=== PATIENT | male | born 1975 | race Caucasian/White ===

== ENCOUNTER 2017-10-25 11:06 | Emergency (ER) | payer OTHER ==
[~2017-10-25] VITALS: Ht 180.3 cm; Wt 79.4 kg
[~2017-10-25 11:06] MED LIST: CLIN300 PO; Norco 5-325 Ta1 EACH PO; TRIPLE ANTIBIO1 EACH TOP
[2018-06-25] MEDS ORDERED: IBUP600 PO (19:42)
[2018-06-25] MEDS ORDERED: Percocet 5-3251 EACH PO (19:42)
== END 2017-10-25 12:06 | disposition home or self-care (01) ==
LOC: ER 11:06
DX: S61.511D Laceration without foreign body of right wrist, subsequent encounter (principal); F17.200 Nicotine dependence, unspecified, uncomplicated; W22.8XXD Striking against or struck by other objects, subsequent encounter; Z88.0 Allergy status to penicillin
CPT/HCPCS: 99281

== ENCOUNTER 2018-07-07 12:22 | Day surgery (SDC) | payer OTHER ==
[~2018-07-07] VITALS: Ht 177.8 cm; Wt 75.8 kg
[~2018-07-07 12:22] MED LIST changes: +IBUP600 PO; +Percocet 5-3251 EACH PO
[2018-07-07] MEDS ORDERED: Ventolin5 MG/1 ML (12:51)
== END 2018-07-07 16:19 | disposition home or self-care (01) ==
LOC: ORSCSDS 12:22
PROVIDERS: Orthopaedic Surgery
PROC: 0PSB04Z Reposition Left Clavicle with Internal Fixation Device, Open Approach (ICD-10-PCS; principal; 2018-07-07 13:45)
DX: S42.002A Fracture of unspecified part of left clavicle, initial encounter for closed fracture (principal); J45.909 Unspecified asthma, uncomplicated; F17.210 Nicotine dependence, cigarettes, uncomplicated
CPT/HCPCS: C1713; J1100; J1885; J2250; J2405; J2795; J3010; J7120

== ENCOUNTER 2019-05-13 20:20 | Emergency (ER) | payer OTHER ==
[~2019-05-13] VITALS: Ht 182.9 cm; Wt 78.5 kg
[~2019-05-13 20:20] MED LIST changes: +Ventolin5 MG/1 ML
[2019-05-13] MEDS ORDERED: NAPR550 PO (22:02)
[2019-05-13] MEDS ORDERED: Vibramycin100 MG PO (22:02)
== END 2019-05-13 22:32 | disposition home or self-care (01) ==
LOC: ER 20:20
DX: S02.40EA Zygomatic fracture, right side, initial encounter for closed fracture (principal); S02.81XA Fracture of other specified skull and facial bones, right side, initial encounter for closed fracture; S02.40CA Maxillary fracture, right side, initial encounter for closed fracture; S02.40DA Maxillary fracture, left side, initial encounter for closed fracture; Z23 Encounter for immunization; F17.200 Nicotine dependence, unspecified, uncomplicated; Z88.0 Allergy status to penicillin; Y08.89XA Assault by other specified means, initial encounter; Y92.830 Public park as the place of occurrence of the external cause
CPT/HCPCS: 70450; 70486; 90471; 90714; 96372; 99284-25; J1885

== ENCOUNTER 2019-06-30 08:53 | Emergency (ER) | payer OTHER ==
[~2019-06-30] VITALS: Ht 177.8 cm; Wt 77.1 kg
[~2019-06-30 08:53] MED LIST changes: +NAPR550 PO; +Vibramycin100 MG PO
== END 2019-06-30 10:12 | disposition home or self-care (01) ==
LOC: ER 08:53
DX: S54.91XA Injury of unspecified nerve at forearm level, right arm, initial encounter (principal); J45.901 Unspecified asthma with (acute) exacerbation; F17.200 Nicotine dependence, unspecified, uncomplicated; Z88.0 Allergy status to penicillin; X58.XXXA Exposure to other specified factors, initial encounter
CPT/HCPCS: 29125; 99283-25; L3917

== ENCOUNTER 2019-10-11 12:30 | Inpatient (IN) | payer OTHER ==
[~2019-10-11] VITALS: Ht 177.8 cm; Wt 83.9 kg
[2019-10-11 13:15] LABS: Influenza A Negative (NEGATIVE); Influenza B Negative (NEGATIVE)
[2019-10-11 13:33] LABS: BASOPHILS ABSOLUTE AUTO 0.06 K/mm3 (0.00-0.23); BASOPHILS PERCENT AUTO 0 % (0-2); EOSINOPHILS PERCENT AUTO 0 % (0-6); IMMATURE GRAN ABSOLUTE AUTO 0.08 K/mm3 (0.00-0.10); IMMATURE GRAN PERCENT AUTO 0 % (0-1); LYMPHOCYTES ABSOLUTE AUTO 1.73 K/mm3 (0.84-5.20); LYMPHOCYTES PERCENT AUTO 8 % (21-46); MONOCYTES ABSOLUTE AUTO 1.12 K/mm3 (0.16-1.47); MONOCYTES PERCENT AUTO 5 % (4-13); Mean Corpuscular HGB 31.9 pg (26.0-34.0); Mean Corpuscular HGB Conc 33.3 g/dL (31.5-36.5); Mean Corpuscular Volume 96 fL (80-100); Mean Platelet Volume 8.9 fL (9.1-12.4); NEUTROPHILS ABSOLUTE AUTO 18.95 K/mm3 (1.96-9.15); NEUTROPHILS PERCENT AUTO 86 % (41-73); Platelet Count 353 K/mm3 (150-400); RDW Coefficient Variation 11.6 % (11.7-14.2); RDW Standard Deviation 40.9 fL (35.1-46.3); White Blood Cell Count 21.94 K/mm3 (4.00-11.30)
[2019-10-11 13:54] LABS: Alanine Aminotransfer (ALT/SGP 15 U/L (12-78); Albumin, Blood 3.5 g/dL (3.4-5.0); Albumin/Globulin Ratio 0.7 (0.8-1.8); Alk Phos 100 U/L (50-136); Anion Gap 9 mmol/L (6-16); Aspartate Aminotrans (AST/SGOT 24 U/L (12-37); Bilirubin, Total 1.2 mg/dL (0.1-1.0); Blood Urea Nitrogen 11 mg/dL (8-24); CO2, Blood 26 mmol/L (21-32); Chloride, Blood 98 mmol/L (98-108); Creatinine, Blood 0.85 mg/dL (0.60-1.20); Globulin, Blood 4.9 g/dL (2.2-4.0); Glomerular Filtration Rate >60 (60-); Glucose, Blood 112 mg/dL (70-99); Potassium, Blood 3.5 mmol/L (3.5-5.5); Sodium, Blood 133 mmol/L (136-145); Total Protein, Blood 8.4 g/dL (6.4-8.2)
[2019-10-11] MEDS ORDERED: FLUT1DIS2 (16:21)
[2019-10-11] MEDS ORDERED: ALBU90OI INH (16:22)
--- NOTE | 2019-10-11 17:01 | NUR ---
PT ARRIVED TO UNIT FROM ED. TRANSFERRED INDEPENDENTLY TO BED FROM . PROVIDED SPUTUM AND URINE SPECIMENS. TELE NOW ON. CALL LIGHT IN REACH. MEDICATED PER ORDERS W/TYLENOL FOR PAIN.
[2019-10-11] MEDS ORDERED: ANORO ELLIPTA1 EACH INH (17:25)
[2019-10-11 17:38] LABS: U Amphetamine Screen Not Detected; U Barbituate Screen Not Detected; U Benzodiazapine Screen Not Detected; U Buprenorphine Screen Not Detected; U Cannabinoids Screen Not Detected; U Cocaine Screen Not Detected; U Methadone Screen Not Detected; U Methamphetamine Screen Not Detected; U Opiates Screen DETECTED; U Oxycodone Screen Not Detected; U Phencyclidine Screen Not Detected; U Propoxyphene Screen Not Detected
[2019-10-12 05:39] LABS: BASOPHILS ABSOLUTE AUTO 0.01 K/mm3 (0.00-0.23); BASOPHILS PERCENT AUTO 0 % (0-2); EOSINOPHILS PERCENT AUTO 0 % (0-6); Hemoglobin 12.5 g/dL (13.5-17.5); IMMATURE GRAN ABSOLUTE AUTO 0.05 K/mm3 (0.00-0.10); IMMATURE GRAN PERCENT AUTO 0 % (0-1); LYMPHOCYTES ABSOLUTE AUTO 0.72 K/mm3 (0.84-5.20); LYMPHOCYTES PERCENT AUTO 6 % (21-46); MONOCYTES ABSOLUTE AUTO 0.55 K/mm3 (0.16-1.47); MONOCYTES PERCENT AUTO 4 % (4-13); Mean Corpuscular HGB 31.6 pg (26.0-34.0); Mean Corpuscular HGB Conc 32.9 g/dL (31.5-36.5); Mean Corpuscular Volume 96 fL (80-100); Mean Platelet Volume 9.9 fL (9.1-12.4); NEUTROPHILS ABSOLUTE AUTO 11.18 K/mm3 (1.96-9.15); NEUTROPHILS PERCENT AUTO 89 % (41-73); Platelet Count 294 K/mm3 (150-400); RDW Coefficient Variation 11.8 % (11.7-14.2); RDW Standard Deviation 41.4 fL (35.1-46.3); Red Blood Cell Count 3.96 M/mm3 (4.30-5.90); White Blood Cell Count 12.51 K/mm3 (4.00-11.30)
[2019-10-12 06:12] LABS: Alanine Aminotransfer (ALT/SGP 14 U/L (12-78); Albumin, Blood 2.6 g/dL (3.4-5.0); Albumin/Globulin Ratio 0.6 (0.8-1.8); Alk Phos 83 U/L (50-136); Anion Gap 8 mmol/L (6-16); Aspartate Aminotrans (AST/SGOT 12 U/L (12-37); Bilirubin, Total 0.6 mg/dL (0.1-1.0); Blood Urea Nitrogen 13 mg/dL (8-24); CO2, Blood 22 mmol/L (21-32); Calcium, Blood 8.3 mg/dL (8.5-10.1); Chloride, Blood 110 mmol/L (98-108); Creatinine, Blood 0.81 mg/dL (0.60-1.20); Globulin, Blood 4.1 g/dL (2.2-4.0); Glomerular Filtration Rate >60 (60-); Glucose, Blood 137 mg/dL (70-99); Potassium, Blood 4.2 mmol/L (3.5-5.5); Sodium, Blood 140 mmol/L (136-145); Total Protein, Blood 6.7 g/dL (6.4-8.2)
--- NOTE | 2019-10-12 07:32 | NUR ---
SHIFT SUMMARY PATIENT ALERT AND ORIENTED. HAD A HARD TIME GETTING TO SLEEP OVERNIGHT, WAS ABLE TO FINALLY SLEEP AROUND 0300. IV PATENT AND INFUSING WITH NORMAL SALINE AT 150 ML/HR. BED IN LOWEST POSITION WITH WHEELS LOCKED. REPORT GIVEN TO ONCOMING RN.
--- NOTE | 2019-10-12 08:15 | NUR ---
Umeclidinium/Vilanterol Pt takes this medication daily. Unavailable from Pharmacy so medication was substituted for Glycopyrrolate. Dr. Liliya luna and jerome
--- NOTE | 2019-10-12 16:31 | NUR ---
A/Ox4. Pleasant and cooperative with care. Pt had good PO intake. Productive cough has been minimal this shift. Pt c/o slight dizziness when up to use bathroom, encouraged to call for assistance if needed. Also c/o 8/10 L upper chest pain when breathing, medicated x 2 per EMAR with good results down to 01/27. Denies SOB, dyspnea. Unlabored breathing. Afebrile. No other acute changes this shift.
[2019-10-13 05:00] LABS: BASOPHILS ABSOLUTE AUTO 0.02 K/mm3 (0.00-0.23); BASOPHILS PERCENT AUTO 0 % (0-2); EOSINOPHILS PERCENT AUTO 0 % (0-6); Hematocrit 35.3 % (37.0-53.0); Hemoglobin 11.3 g/dL (13.5-17.5); IMMATURE GRAN ABSOLUTE AUTO 0.17 K/mm3 (0.00-0.10); IMMATURE GRAN PERCENT AUTO 1 % (0-1); LYMPHOCYTES ABSOLUTE AUTO 1.84 K/mm3 (0.84-5.20); LYMPHOCYTES PERCENT AUTO 12 % (21-46); MONOCYTES ABSOLUTE AUTO 1.04 K/mm3 (0.16-1.47); MONOCYTES PERCENT AUTO 7 % (4-13); Mean Corpuscular Volume 97 fL (80-100); Mean Platelet Volume 9.8 fL (9.1-12.4); NEUTROPHILS ABSOLUTE AUTO 12.48 K/mm3 (1.96-9.15); NEUTROPHILS PERCENT AUTO 80 % (41-73); Platelet Count 332 K/mm3 (150-400); RDW Coefficient Variation 12.1 % (11.7-14.2); RDW Standard Deviation 43.6 fL (35.1-46.3); Red Blood Cell Count 3.64 M/mm3 (4.30-5.90); White Blood Cell Count 15.55 K/mm3 (4.00-11.30)
--- NOTE | 2019-10-13 06:10 | NUR ---
SHIFT SUMMARY PT IS A 44 Y/O MALE, ADMITTED FOR SEVERE SEPSIS AND PNA. HE IS A&O X 4 AND INDEPENDENT IN THE ROOM. PT WAS MEDICATED X 1 WITH PRN TYLENOL AND TORADOL FOR L SIDE/CHEST PAIN. NO COMPLAINTS OF ACUTE SOB OR NAUSEA. VITAL SIGNS STABLE. TELE MONITOR SHOWED NSR IN THE 60S. PT RECEIVING NS @ 150 ML/HR THROUGH THE NIGHT. NO OTHER ACUTE CHANGES IN PT CONDITION NOTED DURING THE NIGHT. WILL CONTINUE TO MONITOR AND TREAT PER EMAR UNTIL HAND OFF TO DAY SHIFT RN.
--- NOTE | 2019-10-13 17:34 | NUR ---
Shift Summary Encouraged patient to spend some time out in the hallway, pt declined. Up in room frequently to the bathroom. Complain of 8-9/10 L upper lobe pain, medicated x 3 per EMAR. Pt continues to have productive cough with light brownish/carlson thick sputum, medicated for cough x 2. Denies nausea, vomiting, diarrhea. No other complaints or concerns at this time. Will continue to monitor.
[2019-10-14 04:46] LABS: BASOPHILS ABSOLUTE AUTO 0.06 K/mm3 (0.00-0.23); BASOPHILS PERCENT AUTO 0 % (0-2); EOSINOPHILS ABSOLUTE AUTO 0.01 K/mm3 (0.00-0.68); EOSINOPHILS PERCENT AUTO 0 % (0-6); Hematocrit 34.9 % (37.0-53.0); Hemoglobin 11.4 g/dL (13.5-17.5); IMMATURE GRAN ABSOLUTE AUTO 0.64 K/mm3 (0.00-0.10); IMMATURE GRAN PERCENT AUTO 4 % (0-1); LYMPHOCYTES ABSOLUTE AUTO 2.39 K/mm3 (0.84-5.20); LYMPHOCYTES PERCENT AUTO 15 % (21-46); MONOCYTES ABSOLUTE AUTO 1.66 K/mm3 (0.16-1.47); MONOCYTES PERCENT AUTO 10 % (4-13); Mean Corpuscular HGB 31.4 pg (26.0-34.0); Mean Corpuscular HGB Conc 32.7 g/dL (31.5-36.5); Mean Corpuscular Volume 96 fL (80-100); Mean Platelet Volume 9.4 fL (9.1-12.4); NEUTROPHILS ABSOLUTE AUTO 11.21 K/mm3 (1.96-9.15); NEUTROPHILS PERCENT AUTO 70 % (41-73); Platelet Count 456 K/mm3 (150-400); RDW Coefficient Variation 12.2 % (11.7-14.2); RDW Standard Deviation 43.6 fL (35.1-46.3); Red Blood Cell Count 3.63 M/mm3 (4.30-5.90); White Blood Cell Count 15.97 K/mm3 (4.00-11.30)
[2019-10-14 05:07] LABS: Albumin, Blood 2.5 g/dL (3.4-5.0); Anion Gap 10 mmol/L (6-16); Blood Urea Nitrogen 8 mg/dL (8-24); Bun/Creatinine Ratio 10.6 (12.0-20.0); CO2, Blood 21 mmol/L (21-32); Calcium, Blood 8.1 mg/dL (8.5-10.1); Chloride, Blood 112 mmol/L (98-108); Creatinine, Blood 0.76 mg/dL (0.60-1.20); Glomerular Filtration Rate >60 (60-); Glucose, Blood 92 mg/dL (70-99); Phosphorus, Blood 2.2 mg/dL (2.5-4.9); Potassium, Blood 3.5 mmol/L (3.5-5.5); Sodium, Blood 143 mmol/L (136-145)
--- NOTE | 2019-10-14 06:37 | NUR ---
PT C/O THAT HE HAD BEEN UNABLE TO REST OR SLEEP SINCE HIS ARRIVAL. GAVE PAIN MED AND COUGH SYRUP AT BED TIME AND PATIENT SEEMED TO SLEEP FAIRLY WELL FOR A WHILE. THEN HE WAS UP TO THE BATHROOM AND REPORTED TO THE TRUST AND ESTATES [place] THAT HE HAD COUGHED UP BLOOD AND HAD FLUSHED IT. EDUCATED THE PATIENT THAT IF IT HAPPENED AGAIN HE SHOULD CALL A MEMEBER OF STAFF SO WE CAN SEE IT AND REPORT IT. LATER IN THE SHIFT HE DID COUGH UP ABOUT 10 ML BROWN/MASTERS WATERY FLUID WITH WHAT LOOKED LIKE BLODD CLOTS IN IT. I REPORTED THIS TO DR APONTE. PT RECIEVED PAIN MEDS X2 DOSES THIS SHIFT. HE REMAINS FREE OF INJURY THIS SHIFT
--- NOTE | 2019-10-14 17:59 | NUR ---
SHIFT SUMMARY- PT A/O COOPERATIVE AND PLESANT. INCREASE IN PAIN MEDICATION PER . PT TO RADIOLOGY FOR CT SCAN. LUNG SOUNDS ARE CORSE, COUGHING INTERMITENTLY. PT INDEPENDANT IN THE ROOM PT RECIEVING IV ANTIBIOTICS. ON DROPLET PRECAUTIONS. PT EATING AND DRINKING WELL
[2019-10-15 04:43] LABS: Hematocrit 33.7 % (37.0-53.0); Mean Corpuscular HGB 31.3 pg (26.0-34.0); Mean Corpuscular HGB Conc 32.6 g/dL (31.5-36.5); Mean Corpuscular Volume 96 fL (80-100); Mean Platelet Volume 9.1 fL (9.1-12.4); NRBC ABSOLUTE 0.02 K/mm3 (0.00-0.02); NRBC Auto 0.1 /100 WBC (0.0-0.2); Platelet Count 482 K/mm3 (150-400); RDW Coefficient Variation 12.3 % (11.7-14.2); RDW Standard Deviation 43.3 fL (35.1-46.3); Red Blood Cell Count 3.51 M/mm3 (4.30-5.90); White Blood Cell Count 17.68 K/mm3 (4.00-11.30)
[2019-10-15 04:59] LABS: Albumin, Blood 2.2 g/dL (3.4-5.0); Anion Gap 6 mmol/L (6-16); Blood Urea Nitrogen 8 mg/dL (8-24); Bun/Creatinine Ratio 10.5 (12.0-20.0); CO2, Blood 25 mmol/L (21-32); Calcium, Blood 7.9 mg/dL (8.5-10.1); Chloride, Blood 110 mmol/L (98-108); Creatinine, Blood 0.77 mg/dL (0.60-1.20); Glomerular Filtration Rate >60 (60-); Glucose, Blood 99 mg/dL (70-99); Phosphorus, Blood 2.9 mg/dL (2.5-4.9); Potassium, Blood 3.5 mmol/L (3.5-5.5); Sodium, Blood 141 mmol/L (136-145)
[2019-10-15 05:38] LABS: BAND PERCENT MAN 1 % (0-8); BASOPHILS PERCENT MAN 0 % (0-2); EOSINOPHILS PERCENT MAN 0 % (0-6); LYMPHOCYTES ABSOLUTE MAN 2.47 K/mm3 (0.84-5.20); LYMPHOCYTES PERCENT MAN 14 % (21-46); METAMYELOCYTE ABSOLUTE MAN 0.35 K/mm3 (0.00-0.00); METAMYELOCYTE PERCENT MAN 2 % (0-0); MONOCYTES ABSOLUTE MAN 2.12 K/mm3 (0.16-1.47); MONOCYTES PERCENT MAN 12 % (4-13); MYELOCYTE ABSOLUTE MAN 0.35 K/mm3 (0.00-0.00); MYELOCYTE PERCENT MAN 2 % (0-0); NEUTROPHILS ABSOLUTE MAN 12.37 K/mm3 (1.96-9.15); SEG NEUTROPHILS PERCENT MAN 69 % (41-73); TOTAL CELLS COUNTED 100
--- NOTE | 2019-10-15 06:32 | NUR ---
SHIFT SUMMARY PT IS A 44 Y/O MALE, ADMITTED FOR PNA. HE IS A&O X 4, AND INDEPENDENT IN THE ROOM. PT WAS MEDICATED FOR PAIN X1 WITH IV TORADOL, AND FOR COUGH X 2 WITH PO COUGH SYRUP. HE RECEIVED CONTINUOUS NS @ 150 ML/HR. VITAL SIGNS STABLE. TELE SHOWED NSR IN THE 70S PER SENIOR CHEMICAL PROCESS ENGINEER. NO ACUTE CHANGES IN PT CONDITION NOTED DURING THE NIGHT. WILL CONTINUE TO MONITOR AND TREAT PER EMAR UNTIL HAND OFF TO DAY SHIFT RN.
[2019-10-15 15:29] LABS: Vancomycin, Trough 13.4 ug/mL (5.0-10.0)
--- NOTE | 2019-10-15 17:39 | NUR ---
SHIFT SUMMARY PT INDEPENDENT IN ROOM. REPORTS PAIN TO L CHEST WALL AND THIS MORNING THE BASE OF HIS NECK. K PAD PLACED IN ROOM TO OFFER COMFORT TO SITES WELL TORADOL GIVEN. REPORTS COUGH IS IMPROVING FROM YESTERDAY. WHAT HE IS SPITTING IN SPECIMAN CONTAINER HAS NO BLOOD NOTED. SHOWER TAKEN TODAY. PT FOUND RETURNING TO ROOM AFTER GOING OUT TO SMOKE. EXPLAINED DANGER OF WEARING NICOTINE PATCH AND SMOKING.
--- NOTE | 2019-10-16 04:09 | NUR ---
SHIFT SUMMARY PATIENT ALERT AND ORIENTED. PATIENT HAT NO COMPLAINT OF PAIN OVERNIGHT AND WAS ABLE TO GET A GIID NIGHTS SLEEP. IV PATENT AND FLUSHED. BED IN LOWEST POSITION WITH WHEELS LOCKED. CALL LIGHT AND BELONGINGS WITHIN REACH. REPORT GIVEN TO ONCOMING ROSENDA.
[2019-10-16 05:26] LABS: Hematocrit 34.3 % (37.0-53.0); Mean Corpuscular HGB Conc 32.1 g/dL (31.5-36.5); Mean Corpuscular Volume 97 fL (80-100); Mean Platelet Volume 9.3 fL (9.1-12.4); NRBC ABSOLUTE 0.02 K/mm3 (0.00-0.02); NRBC Auto 0.1 /100 WBC (0.0-0.2); Platelet Count 583 K/mm3 (150-400); RDW Coefficient Variation 12.3 % (11.7-14.2); RDW Standard Deviation 43.3 fL (35.1-46.3); Red Blood Cell Count 3.55 M/mm3 (4.30-5.90)
[2019-10-16 05:45] LABS: Albumin, Blood 2.2 g/dL (3.4-5.0); Anion Gap 7 mmol/L (6-16); BASOPHILS PERCENT MAN 0 % (0-2); Blood Urea Nitrogen 10 mg/dL (8-24); Bun/Creatinine Ratio 12.5 (12.0-20.0); CO2, Blood 27 mmol/L (21-32); Calcium, Blood 8.3 mg/dL (8.5-10.1); Chloride, Blood 108 mmol/L (98-108); EOSINOPHILS ABSOLUTE MAN 0.18 K/mm3 (0.00-0.68); EOSINOPHILS PERCENT MAN 1 % (0-6); Glomerular Filtration Rate >60 (60-); Glucose, Blood 94 mg/dL (70-99); LYMPHOCYTES ABSOLUTE MAN 2.92 K/mm3 (0.84-5.20); LYMPHOCYTES PERCENT MAN 16 % (21-46); MONOCYTES ABSOLUTE MAN 2.56 K/mm3 (0.16-1.47); MONOCYTES PERCENT MAN 14 % (4-13); MYELOCYTE ABSOLUTE MAN 0.36 K/mm3 (0.00-0.00); MYELOCYTE PERCENT MAN 2 % (0-0); NEUTROPHILS ABSOLUTE MAN 12.26 K/mm3 (1.96-9.15); Phosphorus, Blood 3.1 mg/dL (2.5-4.9); Potassium, Blood 3.6 mmol/L (3.5-5.5); SEG NEUTROPHILS PERCENT MAN 67 % (41-73); Sodium, Blood 142 mmol/L (136-145); TOTAL CELLS COUNTED 100
[2019-10-16 15:26] LABS: Vancomycin, Trough 17.5 ug/mL (5.0-10.0)
--- NOTE | 2019-10-16 17:32 | NUR ---
1700 PT NOT IT ROOM, ATTEMPTING TO GIVE DOSE OF VANCO.
--- NOTE | 2019-10-17 04:41 | NUR ---
SHIFT SUMMARY PATIENT ALERT AND ORIENTED. REQUIRED PRN TORADOL AND COUGH MEDICINE ONCE OVERNIGHT DUE TO CHEST PAIN FROM COUGHING. IV PATENT AND FLUSHED. PATIENT ABLE TO SLEEP WELL OVERNIGHT. BED IN LOWEST POSITION WITH WHEELS LOCKED. CALL LIGHT AND BELONGINGS WITHIN REACH. REPORT GIVEN TO ONCOMING RN.
[2019-10-17 05:22] LABS: Hematocrit 33.1 % (37.0-53.0); Hemoglobin 10.7 g/dL (13.5-17.5); Mean Corpuscular HGB 30.9 pg (26.0-34.0); Mean Corpuscular HGB Conc 32.3 g/dL (31.5-36.5); Mean Corpuscular Volume 96 fL (80-100); Mean Platelet Volume 8.9 fL (9.1-12.4); Platelet Count 652 K/mm3 (150-400); RDW Coefficient Variation 12.2 % (11.7-14.2); RDW Standard Deviation 42.7 fL (35.1-46.3); Red Blood Cell Count 3.46 M/mm3 (4.30-5.90); White Blood Cell Count 17.62 K/mm3 (4.00-11.30)
[2019-10-17 05:43] LABS: BASOPHILS PERCENT MAN 0 % (0-2); EOSINOPHILS ABSOLUTE MAN 0.35 K/mm3 (0.00-0.68); EOSINOPHILS PERCENT MAN 2 % (0-6); LYMPHOCYTES ABSOLUTE MAN 2.46 K/mm3 (0.84-5.20); LYMPHOCYTES PERCENT MAN 14 % (21-46); METAMYELOCYTE ABSOLUTE MAN 0.35 K/mm3 (0.00-0.00); METAMYELOCYTE PERCENT MAN 2 % (0-0); MONOCYTES ABSOLUTE MAN 1.58 K/mm3 (0.16-1.47); MONOCYTES PERCENT MAN 9 % (4-13); MYELOCYTE ABSOLUTE MAN 0.35 K/mm3 (0.00-0.00); MYELOCYTE PERCENT MAN 2 % (0-0); NEUTROPHILS ABSOLUTE MAN 12.51 K/mm3 (1.96-9.15); SEG NEUTROPHILS PERCENT MAN 71 % (41-73); TOTAL CELLS COUNTED 100
--- NOTE | 2019-10-17 18:33 | NUR ---
SHIFT SUMMARY. PT DENIES SOB, CONTINUES WITH COUGH AND CHEST PAIN, SYMPTOMS MANAGED WITH CURRENT ORDERS. PT OUT TO SMOKE TWICE THIS SHIFT. NEW IV TO RFA STARTED. PT WITH FEVER OF 102 F, RESOLVED WITH APAP.
--- NOTE | 2019-10-18 06:30 | NUR ---
SHIFT SUMMARY PATIENT ALERT AND ORIENTED OVERNIGHT. COMPLAINED OF PAIN ONCE AND WAS ADMINISTERED PRN TORADOL. PATIENT SLEPT WELL MOST OF THE NIGHT. IV PATENT AND FLUSHED. BED IN LOWEST POSITION WITH WHEELS LOCKED. CALL LIGHT AND BELONGINGS WITHIN REACH. REPORT GIVEN TO ONCOMING RN.
[2019-10-18 08:25] LABS: Hematocrit 34.2 % (37.0-53.0); Hemoglobin 11.1 g/dL (13.5-17.5); Mean Corpuscular HGB 31.1 pg (26.0-34.0); Mean Corpuscular HGB Conc 32.5 g/dL (31.5-36.5); Mean Corpuscular Volume 96 fL (80-100); Mean Platelet Volume 8.6 fL (9.1-12.4); Platelet Count 701 K/mm3 (150-400); RDW Coefficient Variation 12.1 % (11.7-14.2); RDW Standard Deviation 42.6 fL (35.1-46.3); Red Blood Cell Count 3.57 M/mm3 (4.30-5.90); White Blood Cell Count 20.63 K/mm3 (4.00-11.30)
[2019-10-18 08:53] LABS: BAND PERCENT MAN 1 % (0-8); BASOPHILS ABSOLUTE MAN 0.61 K/mm3 (0.00-0.23); BASOPHILS PERCENT MAN 3 % (0-2); EOSINOPHILS ABSOLUTE MAN 0.61 K/mm3 (0.00-0.68); EOSINOPHILS PERCENT MAN 3 % (0-6); LYMPHOCYTES ABSOLUTE MAN 2.26 K/mm3 (0.84-5.20); LYMPHOCYTES PERCENT MAN 11 % (21-46); METAMYELOCYTE PERCENT MAN 1 % (0-0); MONOCYTES ABSOLUTE MAN 0.82 K/mm3 (0.16-1.47); MONOCYTES PERCENT MAN 4 % (4-13); MYELOCYTE PERCENT MAN 1 % (0-0); NEUTROPHILS ABSOLUTE MAN 15.88 K/mm3 (1.96-9.15); SEG NEUTROPHILS PERCENT MAN 76 % (41-73); TOTAL CELLS COUNTED 100
--- NOTE | 2019-10-18 09:22 | NUR ---
Per Dr. Ware, consult called with Dr. Hurtado @ [phone] by this RN via on-call phone and spoke with Dr. Hurtado. Also received new orders from Dr. Ware to add Flagyl IV.
--- NOTE | 2019-10-18 18:36 | NUR ---
Shift Summary A/Ox 4. Patient has been in his room all day. Medicated for pain x 2, cough x 2, headache x 1 with good results. Pt has nonproductive cough, has been independent in room, and calls appropriately for needs. No acute concerns, denies further needs at this time. Will continue to monitor.
--- NOTE | 2019-10-19 04:30 | NUR ---
SHIFT SUMMARY ADMIT FOR SEPSIS (LFT UPPER LOBE PNEUMONIA). FULL CODE. DROPLET/CONTACT FOR MRSA IN SPUTUM. PULMONOLOGY CONSULT YESTERDAY DX: MULTIFOCAL BILATERAL NECROTIZING MRSA PNEUMONIA, RECOMMENDS ZYVOX FOR 21 DAYS & FOLLOW UP W/PULMONOLOGY 1 WEEK AFTER DC & FOLLOW UP IMAGING 6 WEEKS AFTER DC. MONITORING WBC LABS. REGULAR DIET. RA. PT LIVES IN A HALF-WAY. HX: DRUG USE, COPD.
[2019-10-19 04:46] LABS: BASOPHILS PERCENT AUTO 1 % (0-2); EOSINOPHILS ABSOLUTE AUTO 0.33 K/mm3 (0.00-0.68); EOSINOPHILS PERCENT AUTO 2 % (0-6); Hematocrit 34.2 % (37.0-53.0); Hemoglobin 11.1 g/dL (13.5-17.5); IMMATURE GRAN ABSOLUTE AUTO 0.91 K/mm3 (0.00-0.10); IMMATURE GRAN PERCENT AUTO 5 % (0-1); LYMPHOCYTES ABSOLUTE AUTO 1.91 K/mm3 (0.84-5.20); LYMPHOCYTES PERCENT AUTO 10 % (21-46); MONOCYTES PERCENT AUTO 6 % (4-13); Mean Corpuscular HGB 30.8 pg (26.0-34.0); Mean Corpuscular HGB Conc 32.5 g/dL (31.5-36.5); Mean Corpuscular Volume 95 fL (80-100); Mean Platelet Volume 8.5 fL (9.1-12.4); NEUTROPHILS ABSOLUTE AUTO 14.41 K/mm3 (1.96-9.15); NEUTROPHILS PERCENT AUTO 77 % (41-73); Platelet Count 789 K/mm3 (150-400); RDW Coefficient Variation 12.1 % (11.7-14.2); RDW Standard Deviation 42.5 fL (35.1-46.3); White Blood Cell Count 18.76 K/mm3 (4.00-11.30)
[2019-10-19] MEDS ORDERED: ACET325 PO (15:15)
[2019-10-19] MEDS ORDERED: GUAI600T33 PO (15:16)
[2019-10-19] MEDS ORDERED: GUAIFENESIN-CODE5 ML PO (15:16)
[2019-10-19] MEDS ORDERED: LINE600 PO (15:17)
[2019-10-19] MEDS ORDERED: Vsl#3 Capsule1 EACH PO (15:17)
--- NOTE | 2019-10-19 16:21 | NUR ---
DISCHARGE DR JOE IN TO SEE PT MID-DAY, STATE OK TO D/C HOME TODAY, PLACE ORDERS THAT INCLUDE ORAL ANTIBX & COUGH MEDICINE. [facility]ED TO [facility]. IV D/C INTACT. D/C INSTRUCT REVIEWED. [facility]. PT STATE FEELS READY FOR D/C HOME. PLEASANT/APPRECIATIVE. DECLINES W/C, AMBULATES FROM HOSP [facility].
[2019-10-28] MEDS ORDERED: LEVO750 PO (12:52)
== END 2019-10-19 15:51 | disposition home or self-care (01) | DRG 871 ==
LOC: ER 12:30 → MEDS 15:33 → ENPENDDIS 10-19 15:25 → MEDS 10-19 15:51
PROVIDERS: Internal Medicine; Nurse Practitioner Acute Care; Pharmacist; Physician Assistant; ADMIT Hospitalist
DX: A41.02 Sepsis due to Methicillin resistant Staphylococcus aureus (principal); J18.9 Pneumonia, unspecified organism; J44.1 Chronic obstructive pulmonary disease with (acute) exacerbation; J44.0 Chronic obstructive pulmonary disease with (acute) lower respiratory infection; R65.20 Severe sepsis without septic shock; G47.00 Insomnia, unspecified; E83.39 Other disorders of phosphorus metabolism; F17.210 Nicotine dependence, cigarettes, uncomplicated; Z88.0 Allergy status to penicillin
CPT/HCPCS: 36415; 71045; 71046; 71260; 80053; 80069; 80202; 83605; 84145; 85025; 87040; 87070; 87077; 87147; 87186; 87205; 87449; 87804; 90686; 94640; 94760; 96365; 96367; 96375; 99285-25; A9270; A9270-GY; J0456; J0696; J1650; J1885; J1956; J3370; J7030; J7050; J7512; Q9967

== ENCOUNTER 2020-03-07 13:11 | Emergency (ER) | payer OTHER ==
[~2020-03-07] VITALS: Ht 170.2 cm; Wt 79.4 kg
[~2020-03-07 13:11] MED LIST changes: +ACET325 PO; +ALBU90OI INH; +ANORO ELLIPTA1 EACH INH; +FLUT1DIS2; +GUAI600T33 PO; +GUAIFENESIN-CODE5 ML PO; +LEVO750 PO; +LINE600 PO; +Vsl#3 Capsule1 EACH PO
[2020-03-07 14:35] LABS: BASOPHILS ABSOLUTE AUTO 0.09 K/mm3 (0.00-0.23); BASOPHILS PERCENT AUTO 1 % (0-2); EOSINOPHILS ABSOLUTE AUTO 0.23 K/mm3 (0.00-0.68); EOSINOPHILS PERCENT AUTO 2 % (0-6); Hematocrit 44.4 % (37.0-53.0); IMMATURE GRAN ABSOLUTE AUTO 0.03 K/mm3 (0.00-0.10); IMMATURE GRAN PERCENT AUTO 0 % (0-1); LYMPHOCYTES ABSOLUTE AUTO 3.44 K/mm3 (0.84-5.20); LYMPHOCYTES PERCENT AUTO 36 % (21-46); MONOCYTES ABSOLUTE AUTO 0.39 K/mm3 (0.16-1.47); MONOCYTES PERCENT AUTO 4 % (4-13); Mean Corpuscular HGB 30.6 pg (26.0-34.0); Mean Corpuscular HGB Conc 33.8 g/dL (31.5-36.5); Mean Corpuscular Volume 91 fL (80-100); Mean Platelet Volume 8.2 fL (9.1-12.4); NEUTROPHILS PERCENT AUTO 56 % (41-73); Platelet Count 446 K/mm3 (150-400); RDW Standard Deviation 39.9 fL (35.1-46.3); White Blood Cell Count 9.48 K/mm3 (4.00-11.30)
[2020-03-07 14:53] LABS: Anion Gap 8 mmol/L (6-16); Blood Urea Nitrogen 11 mg/dL (8-24); Bun/Creatinine Ratio 15.1 (12.0-20.0); CO2, Blood 23 mmol/L (21-32); Calcium, Blood 7.5 mg/dL (8.5-10.1); Chloride, Blood 113 mmol/L (98-108); Creatinine, Blood 0.73 mg/dL (0.60-1.20); Ethanol (Alcohol), Blood, Med 421 mg/dL; Glomerular Filtration Rate >60 (60-); Glucose, Blood 108 mg/dL (70-99); Potassium, Blood 3.4 mmol/L (3.5-5.5); Sodium, Blood 144 mmol/L (136-145)
== END 2020-03-07 19:45 | disposition home or self-care (01) ==
LOC: ER 13:11
PROVIDERS: Emergency Medicine
DX: F10.129 Alcohol abuse with intoxication, unspecified (principal); J44.9 Chronic obstructive pulmonary disease, unspecified; Z88.0 Allergy status to penicillin; Z79.899 Other long term (current) drug therapy; Z59.0 Homelessness; F17.220 Nicotine dependence, chewing tobacco, uncomplicated
CPT/HCPCS: 71045; 80048; 82947; 85025; 94770; 96361; 96374; 96375; 99284-25; G0480; J2310; J2405; J7030